=== PATIENT | female | born 1970 | race Caucasian/White ===

== ENCOUNTER → 2018-09-06 16:30 | Outpatient (CLI) | payer OTHER | END | disposition home or self-care (01) | LOC: D.MAMMO 11:00 | DX: Z12.31 Encounter for screening mammogram for malignant neoplasm of breast (principal) ==

== ENCOUNTER 2021-04-09 06:12 | Day surgery (SDC) | payer OTHER ==
[~2021-04-09] VITALS: Ht 147.3 cm; Wt 49.9 kg
--- NOTE | ~2021-04-09 | OP ---
PATIENT NAME: CRISTHIAN KERNS MEDICAL RECORD: [id number] :66 LOCATION:[facility] ADMISSION DATE: SURGEON: CIARA NULL MD DATE OF OPERATION: 04/09/2021 PREOPERATIVE DIAGNOSES: Chronic sinusitis, septal deviation, turbinate hypertrophy, nasal obstruction, allergic rhinitis. POSTOPERATIVE DIAGNOSES: Chronic sinusitis, septal deviation, turbinate hypertrophy, nasal obstruction, allergic rhinitis. PROCEDURE: Septoplasty, bilateral inferior turbinate reduction, bilateral middle meatal antrostomy and bilateral anterior ethmoidectomy. SURGEON: Ciara Null MD ANESTHESIA: General orotracheal. BLOOD LOSS: Less than 5 cc. SPECIMENS: Right and left nasal polyps. Cultures from the right ethmoid sinuses. NASAL PACKING: Sanchez splints bilaterally. COMPLICATIONS: None. DISPOSITION: Recovery, stable. DESCRIPTION OF PROCEDURE: She was brought to the operating room and placed in supine position, sedated and intubated by anesthesia. The table was turned 90 degrees. Head drape was applied and she was positioned for sinus surgery. Using a headlight and nasal speculum, the nose was examined. She had been decongested with Afrin preoperatively. The anterior septum uncinate inferior turbinates were injected with a total of 1.5 cc of 1% lidocaine with 1:100,000 epinephrine with a long 27-gauge needle. Two Afrin pledgets were placed in each side of the nose. She was positioned, prepped and draped in the usual fashion and all Afrin pledgets were removed. A 0-degree scope was used to examine the nose. The inferior turbinate was just large, but in the middle turbinates there were obvious polyps in the middle meatus bilaterally. Nasal vault was normal. There was a cleft in the middle turbinate on the left side, but it was large. The nasopharynx was normal. Started on the left side, the middle turbinate was medialized slightly. Pediatric upbiting forceps was used to remove some manufacturing sales representative polyps and then the microdebrider was inserted to take down the polyps, exposed the ethmoid bulla and the area of the maxillary ostia and uncinate. Once that was done, a backbiter was used to take down a portion of the uncinate. A large curved olive tip suction was inserted in the maxillary sinus and a microdebrider was used to clean up polypoid tissue around there and make a nice smooth opening. Then, the ethmoid bulla was entered inferomedially with the microdebrider, taken down the anterior ethmoids. There were polypoid changes to the mucosa, but otherwise looked normal, opened up. Clean and nice pediatric upbiting forceps was used to remove some of the bone fragments, but it was really very clean, almost no bleeding. The middle turbinate was medialized. The microdebrider was used to take down the inferior redundant polypoid portion of the tissue there and the suction cautery was used to stop any bleeding. It OPERATIVE REPORT [id number] CRISTHIAN KERNS was outfractured with a [place]. Then, the right side was addressed. Again, the middle turbinate was medialized and the microdebrider was used to take down the polyps. After some polyps were taken for pathology, then the uncinate was taken down with the microdebrider. Large curved olive tip suction was inserted into the maxillary sinus and then the ethmoids. There was purulence. Cultures were obtained. The ethmoid bulla was then entered inferomedially and the anterior ethmoid were taken down with the microdebrider, cleaned up all the little bone fragments, made a nice smooth open ethmoid cavity. Same with the maxillary ostia, really not much bleeding. Then, the inferior turbinate was medialized. A microdebrider was used to take down the inferior redundant polypoid portion and the bleeding was stopped with suction Bovie and then it was outfractured. Then, a large curved olive tip suction was used to irrigate out the maxillary sinuses on both sides and the ethmoid. They were all suctioned. Then, a left-sided Jovani incision was made. Ipsilateral mucoperichondrial flap was elevated and relaxing incisions were made in the cartilage. Septal spur was removed and the septal cartilage was fractured, so that it could move to the midline over the maxillary spine. Once that was done, the Jovani incision was closed with interrupted 4-0 chromic. The nasopharynx was suctioned. Everything was cleaned and dry. Sanchez splints with mupirocin ointment were placed bilaterally and sutured through the anterior membranous septum with a 2-0 Prolene on a Scott needle. She was awakened, extubated, and transported to recovery in good condition. No complications. TRANSINT:[id number] Voice Confirmation ID: [id number] DOCUMENT ID: [id number] CIARA NULL MD CC: [id number] DICTATION DATE: 04/09/21 1215 OUTDOOR EDUCATION TEACHER: 04/09/211939 [facility] 04/09/21 [facility] [address] [id number]
[~2021-04-09 06:12] MED LIST: LOPRESSOR25 MG PO; SINGULAIR10 MG PO
[2021-04-09 06:50] LABS: HEMATOCRIT 39.7 % (36.0-48.0); HEMOGLOBIN 13.4 g/dL (12-16); MCHC 33.8 g/dL (31.0-37.0); MCV 91.9 fL (80.0-100.0); MEAN PLATELET VOLUME 8.6 fL (7.4-10.4); RBC 4.32 10x6/uL (4.00-5.40); RDW 13.8 % (11.5-14.5); WBC 5.4 10x3/uL (4.8-10.8)
[2021-04-09 07:04] LABS: HCG SERUM NEGATIVE (NEGATIVE)
[2021-04-09 07:34] VITALS: BP 132/75; Ht 147.3 cm; Wt 49.9 kg
--- NOTE | 2021-04-09 12:04 | HP ---
PATIENT: CRISTHIAN KERNS MEDICAL RECORD: [id number] ACCOUNT: [id number] LOCATION:[facility] : 66 ADMISSION DATE: 04/09/21 PCP: ABHISHEK DAWSON MD HISTORY AND PHYSICAL EXAMINATION PREOPERATIVE HISTORY AND PHYSICAL HISTORY OF PRESENT ILLNESS: Ms. Kerns is a 51-year-old female with refractory nasal obstruction, nasal polyposis, chronic sinusitis. She will be admitted for septoplasty, sinus surgery. PAST MEDICAL HISTORY: Otherwise, fairly negative. PAST SURGICAL HISTORY: None. CURRENT MEDICATIONS: Paxil. ALLERGIES: No known drug allergies. PHYSICAL EXAMINATION: GENERAL: She is a healthy-appearing, developmentally normal. FACE: Normal symmetric, no lesions. EYES: Sclerae and conjunctivae are normal. Ears: Canals and TMs normal. Nose, severe septal deviation to the right. Large inferior turbinates congested. Oral cavity and oropharynx, tongue is midline. Pharynx is normal. NECK: No masses, no adenopathy. CT scan shows no significant frontal sinuses. She has polypoid changes in the ethmoid and maxillary sinuses. CHEST: Clear. CARDIOVASCULAR: Regular rate and rhythm. No murmur. EXTREMITIES: Normal. IMPRESSION: Chronic rhinitis, nasal obstruction, nasal polyposis. PLAN: Septoplasty, bilateral inferior turbinate reduction, anterior ethmoidectomy, and bilateral maxillary antrostomy. TRANSINT:[id number] Voice Confirmation ID: [id number] DOCUMENT ID: [id number] CIARA DICKENS MD at 1204 CC: [id number] DICTATION DATE: 04/08/2125 SUPERVISOR G[employer]IN [employer]ANT: 04/08/21 [id number] [place] [address]
[2021-04-12 09:08] LABS: FUNGUS STAIN Final report (())
== END 2021-04-09 12:22 | disposition home or self-care (01) ==
LOC: D.OPS 06:12
PROVIDERS: Anesthesiology; ATTEND Otolaryngology
DX: J32.9 Chronic sinusitis, unspecified (principal); J34.2 Deviated nasal septum; J34.3 Hypertrophy of nasal turbinates; J33.9 Nasal polyp, unspecified; J34.89 Other specified disorders of nose and nasal sinuses; J30.9 Allergic rhinitis, unspecified